=== PATIENT | female | born 1955 | race Caucasian/White ===

== ENCOUNTER 2020-07-22 20:07 | Inpatient (IN) | payer MEDICARE, OTHER ==
[2020-07-22 23:19] VITALS: TEMP 98.3
[2020-07-22] MEDS ORDERED: HEPARIN SODIUM 1,000 UN/ML (10ML VL) IV PRN (23:39)
[2020-07-22 23:53] LABS: Glucose,Whole Blood 113 mg/dL (75-99)
[2020-07-23] MEDS: HEPARIN SOD,PORK IN 0.45% NACL 25,000 UNIT in 0.45% NACL 1 250ML.BAG IV SCH ×2 (00:16→12:24)
[2020-07-23 01:17] LABS: Partial Thromboplastin Time 22.1 sec (22.0-30.0); Prothrombin Time 10.8 sec (9.0-12.0)
[2020-07-23 01:54] VITALS: RESP 18
[2020-07-23 06:22] LABS: Glucose,Whole Blood 117 mg/dL (75-99)
[2020-07-23] MEDS: INSULIN ASPART (NovoLOG) 100 UNIT/ML VIAL SQ SCH ×2 (07:18→13:45)
--- NOTE | 2020-07-23 08:30 | NM ---
EXAMINATION TYPE: NM pul vent and perfuse DATE OF EXAM: 07/23/2020 COMPARISON: Outside chest x-ray from yesterday HISTORY: Morbidly obese with shortness of breath TECHNIQUE: Utilizing inhalation of 66.5 mCi Tc 99m DTPA aerosol and intravenous injection of 5.4 mCi of Tc 99m MAA, ventilation and perfusion images are acquired post injection in multiple projections. FINDINGS: Slight central clumping of ventilation images suggests underlying COPD. Large radiolucent area corres ponds to known cardiomegaly. Small matching defects in the upper to mid right lung. There is no evide nce of mismatched defects. IMPRESSION: Low suspicion for acute pulmonary embolism.
[2020-07-23 08:31] VITALS: BP 202/88; PULSE 68
[2020-07-23 12:09] LABS: HCT 29.8 % (34.0-46.0); Hypochromasia Marked; MCH 29.5 pg (25.0-35.0); MCHC 30.2 g/dL (31.0-37.0); MCV 97.7 fL (80.0-100.0); Platelet Count 343 k/uL (150-450); RBC 3.04 m/uL (3.80-5.40); RDW 13.9 % (11.5-15.5)
[2020-07-23] MEDS ORDERED: hydrALAZINE HCL 20 MG/ML 1 ML VIAL IVP PRN (12:14)
[2020-07-23 12:20] LABS: ALT 10 U/L (4-34); AST 18 U/L (14-36); African American GFR (CKD) 28 (>60 ml/min/1.73 sqM); Albumin 2.9 g/dL (3.5-5.0); Alkaline Phosphatase 91 U/L (38-126); Anion Gap 5 mmol/L; Blood Urea Nitrogen 36 mg/dL (7-17); Carbon Dioxide 27 mmol/L (22-30); Chloride 111 mmol/L (98-107); Glucose 117 mg/dL (74-99); Non-African American GFR(CKD) 25 (>60 ml/min/1.73 sqM); Potassium 4.3 mmol/L (3.5-5.1); Sodium 143 mmol/L (137-145); Total Bilirubin <0.1 mg/dL (0.2-1.3); Total Protein 5.7 g/dL (6.3-8.2)
[2020-07-23] MEDS ORDERED: FUROSEMIDE 80 MG TAB PO STA (12:20)
[2020-07-23] MEDS ORDERED: FUROSEMIDE 10 MG/ML 10 ML VIAL IV SCH (12:30)
[2020-07-23] MEDS ORDERED: lisinopriL 20 MG TAB PO SCH (12:30)
--- NOTE | 2020-07-23 12:56 | P.HPIM ---
History of Present Illness Patient patient is a 64-year-old female was transferred from a [facility] after he she presented there with shortness of breath. Patient is presently not on oxygen patient is alert and oriented 2 patient is declining any care, patient wanted to see her own doctors. Patient had workup there at the hospital patient appears to have chronic kidney disease stage IV baseline creatinine is not available present creatinine is 2.07 patient is hypotensive with blood pressure going up to about 200s patient had some pulmonary edema on the chest x-ray although her ejection fraction is not known heart failure status is not known at this time. Patient does have some pedal edema would benefit from IV Lasix. Although she pulled her IV out and doesn't want any other IV. Patient declined to answer my questions patient didn't let me examine her either. Patient the had a VQ scan which showed low probability for pulmonary e mbolism. Patient is a [facility] resident. Review of Systems Unable to assess due to above-mentioned reasons patient is declining to answer any questions Past Medical History Past Medical History: Coronary Artery Disease (CAD), Diabetes Mellitus, Hyperlipidemia, Hypertension, Sleep Apnea/CPAP/BIPAP Additional Past Medical History / Comment(s): IBS History of Any Multi-Drug Resistant Organisms: None Reported Past Surgical History: Coronary Bypass/CABG Additional Past Surgical History / Comment(s): 3 vessel repair, "spot removed from lungs" Past Anesthesia/Blood Transfusion Reactions: No Reported Reaction Past Psychological History: Depression Smoking Status: Former smoker Past Drug Use History: None Reported - Past Family History Father Family Medical History: Diabetes Mellitus Medications and Allergies Home Medications Medication Instructions Recorded Confirmed Type ALPRAZolam [Xanax] 0.25 mg PO TID PRN 07/23/20 07/23/20 History Ascorbic Acid [Vitamin C] 500 mg PO DAILY 07/23/20 07/23/20 History Aspirin 81 mg PO DAILY 07/23/20 07/23/20 History Atorvastatin Calcium [Lipitor] 40 mg PO DAILY 07/23/20 07/23/20 History Calcium Carb-Vit D 500Mg-5Mcg 1 each PO BID 07/23/20 07/23/20 History [Oscal 500+D 5 Mcg (200 Iu)] Cyclobenzaprine [Flexeril] 10 mg PO TID PRN 07/23/20 07/23/20 History Desvenlafaxine Succinate 25 mg PO DAILY 07/23/20 07/23/20 History [Desvenlafaxine Succinate ER] Desvenlafaxine Succinate [Pristiq 25 mg PO DAILY 07/23/20 07/23/20 History ER] Ferrous Sulfate [Feosol] 325 mg PO DAILY 07/23/20 07/23/20 History Fluconazole [Diflucan] 100 mg PO DAILY 07/23/20 07/23/20 History Furosemide [Lasix] 40 mg PO DAILY 07/23/20 07/23/20 History Gabapentin [Neurontin] 300 mg PO BID 07/23/20 07/23/20 History HYDROcodone/APAP 5-325MG [[place] 1 tab PO Q6HR PRN 07/23/20 07/23/20 History 5-325] Insulin Glargine,Hum.rec.anlog 30 unit SQ BID 07/23/20 07/23/20 History [Lantus Solostar] Insulin NPL/Insulin Lispro 20 unit SQ AC-TID 07/23/20 07/23/20 History [humaLOG MIX 75-25 VIAL] Ipratropium-Albuterol Nebulize 1 neb INHALATION Q6HR 07/23/20 07/23/20 History [Duoneb 0.5 mg-3 mg/3 ml Soln] Isosorbide Mononitrate ER [Imdur] 30 mg PO DAILY 07/23/20 07/23/20 History Linagliptin [Tradjenta] 5 mg PO DAILY 07/23/20 07/23/20 History Meclizine [Antivert] 12.5 mg PO Q8HR PRN 07/23/20 07/23/20 History Metoprolol Tartrate [Lopressor] 100 mg PO BID 07/23/20 07/23/20 History Nitrofurantoin Monohyd/M-Cryst 100 mg PO Q12HR 07/23/20 07/23/20 History [Macrobid] Pentoxifylline 400 mg PO BID 07/23/20 07/23/20 History Pentoxifylline 400 mg PO BID 07/23/20 07/23/20 History hydrALAZINE HCL 50 mg PO TID 07/23/20 07/23/20 History hydrALAZINE HCL [Apresoline] 100 mg PO BID 05/22/21 05/22/21 History metFORMIN HCL [metFORMIN HCL ER] 750 mg PO DAILY 07/23/20 07/23/20 History Allergies Allergy/AdvReac Type Severity Reaction Status Date / Time No Known Allergies Allergy Verified 07/22/20 23:28 Physical Exam Vitals: Vital Signs Temp Pulse Resp BP Pulse Ox 07/23/20 08:00 98.3 F 68 18 202/88 95 07/23/20 04:00 74 18 184/76 94 L 07/23/20 00:00 77 18 153/76 95 07/22/20 22:58 98.3 F 70 22 174/75 95 Intake and Output 07/22/20 07/23/20 07/23/20 22:59 06:59 14:59 Intake Total 350 148.669 Output Total 550 200 Balance 350 -401.331 -200 Intake: Intake, IV Titration 148.669 Amount Heparin Sod,Pork in 0.45% 148.669 NaCl 25,000 unit In 0.45 % NaCl 1 250ml.bag @ 11 UNITS/KG/HR 22.99 mls/hr IV .[id number] [facility] Rx#: [id number] Oral 350 Output: Urine 550 200 Other: Voiding Method External Catheter Weight 209 kg 172 kg PHYSICAL EXAMINATION: Exam is limited as patient is declining any physical exam GENERAL: The patient is alert and oriented x2, not in any acute distress. Well developed, well nourished. HEENT: Unable to assess CARDIOVASCULAR: Unable to assess PULMONARY: Unable to assess ABDOMEN: Unable to assess MUSCULOSKELETAL: No joint swelling or deformity. EXTREMITIES: Significant bilateral pedal edema NEUROLOGICAL: As mentioned above Results CBC & Chem 7: 07/23/20 05:40 07/23/20 05:40 Labs: Abnormal Lab Results - Last 24 Hours (Table) 07/22/20 07/23/20 07/23/20 Range/Units 23:50 05:40 05:40 RBC 3.04 L (3.80-5.40) m/uL Hgb 9.0 L (11.4-16.0) gm/dL Hct 29.8 L (34.0-46.0) % MCHC 30.2 L (31.0-37.0) g/dL Chloride 111 H (98-107) mmol/L BUN 36 H (7-17) mg/dL Creatinine 2.07 H (0.52-1.04) mg/dL Glucose 117 H (74-99) mg/dL POC Glucose (mg/dL) 113 H (75-99) mg/dL Calcium 8.0 L (8.4-10.2) mg/dL Total Bilirubin <0.1 L (0.2-1.3) mg/dL Total Protein 5.7 L (6.3-8.2) g/dL Albumin 2.9 L (3.5-5.0) g/dL 07/23/20 Range/Units 06:19 RBC (3.80-5.40) m/uL Hgb (11.4-16.0) gm/dL Hct (34.0-46.0) % MCHC (31.0-37.0) g/dL Chloride (98-107) mmol/L BUN (7-17) mg/dL Creatinine (0.52-1.04) mg/dL Glucose (74-99) mg/dL POC Glucose (mg/dL) 117 H (75-99) mg/dL Calcium (8.4-10.2) mg/dL Total Bilirubin (0.2-1.3) mg/dL Total Protein (6.3-8.2) g/dL Albumin (3.5-5.0) g/dL Thrombosis Risk Factor Assmnt - Choose All That Apply Each Factor Represents 1 point: Obesity (BMI >25) Other Risk Factors: No Each Risk Factor Represents 2 Points: Age 61-74 years Other congenital or acquired thrombophilia - If yes, enter type in comment: No Thrombosis Risk Factor Assessment Total Risk Factor Score: 3 Thrombosis Risk Factor Assessment Level: Moderate Risk Assessment and Plan Plan: Shortness of breath: Probably secondary to pulmonary edema unsure pressures patient has heart failure patient would benefit from a IV Lasix although she pulled her IV and doesn't want any more IV lines put in. Patient usually uses 40 of for oral Lasix twice a day patient will be given a one-time dose of 80 Lasix patient is presently on room air saturating at 95% not requiring any oxygen rule out pulmonary embolism with the a VQ scan. As patient doesn't want to see any physicians here unfortunately nothing much else I can offer the patient patient wanted to see her own doctors patient will be transferred back [facility]. Possibility of heart failure exacerbation: Her ejection fraction is not known BNP is elevated to 8508 will be given 1 time oral dose of Lasix and will be resumed on her home dose of Lasix and will be discharged today as mentioned above -Chronic kidney disease stage IV next and-coronary artery disease -Type 2 diabetes mellitus -Hyperlipidemia -Hypertension -Sleep apnea -Generalized deconditioning patient is a [facility] resident -Obesity Unfortunately nothing much else can be offered here patient will be discharged back to [facility] patient will be given one-time dose of oral Lasix higher dose. Patient probably will be switched to torsemide instead of the Lasix which is a long-acting medication.
--- NOTE | 2020-07-23 13:25 | P.DS ---
Providers Date of admission: 07/22/20 22:47 Attending physician: Luisa Banuelos Primary care physician: Stated None Hospital Course: Refer to my HPI for further details Plan - Discharge Summary Discharge Rx Participant: No New Discharge Prescriptions: New Torsemide [Demadex] 30 mg PO DAILY #30 tablet Continue Metoprolol Tartrate [Lopressor] 100 mg PO BID@0900,1700 Atorvastatin Calcium [Lipitor] 40 mg PO HS Insulin NPL/Insulin Lispro [humaLOG MIX 75-25 VIAL] 25 unit SQ AC-TID Desvenlafaxine Succinate [Desvenlafaxine Succinate ER] 25 mg PO DAILY Meclizine [Antivert] 12.5 mg PO Q8HR PRN PRN Reason: Vertigo Ascorbic Acid [Vitamin C] 500 mg PO DAILY@1700 Calcium Carb-Vit D 500Mg-5Mcg [Oscal 500+D 5 Mcg (200 Iu)] 1 tab PO BID@0900,1700 Fiber Powder 1 tbsp PO DAILY@1700 Aspirin EC [Ecotrin Low Dose] 81 mg PO DAILY Epoetin Thiago [Epogen] 10,000 unit SQ MOWEFR@0900 Insulin Glargine,Hum.rec.anlog [Semglee Pen] 30 units SQ HS@2100 HYDROcodone/APAP 7.5-325MG [[place] 7.5-325] 1 tab PO Q12H PRN PRN Reason: Pain Magnesium Hydroxide [Milk of Magnesia Concentrate] 7,200 mg PO DAILY PRN PRN Reason: Constipation bisacodyL [Bisacodyl] 10 mg RECTAL DAILY PRN PRN Reason: Constipation Metoclopramide [Reglan] 10 mg PO AC-TID HYDROcodone/APAP 7.5-325MG [[place] 7.5-325] 1 tab PO BID@0900,2100 #10 tab Pentoxifylline 400 mg PO BID@0900,2100 Isosorbide Mononitrate ER [Imdur] 30 mg PO BID@0900,1700 Ferrous Sulfate [Feosol] 325 mg PO DAILY@1700 Fexofenadine HCl [[place]ana Allergy] 180 mg PO DAILY Insulin Glargine,Hum.rec.anlog [Semglee Pen] 35 units SQ DAILY@0900 Bisacodyl 5 mg PO DAILY PRN PRN Reason: Constipation Sennosides/Docusate Sodium [Senna-S 8.6-50 mg Tablet] 2 tab PO BID@0900,2100 Changed Gabapentin [Neurontin] 100 mg PO BID@899,2100 #10 cap hydrALAZINE HCL 100 mg PO TID #0 Discontinued Furosemide [Lasix] 40 mg PO DAILY Discharge Medication List Ascorbic Acid [Vitamin C] 500 mg PO DAILY@1700 07/23/20 [History] Aspirin EC [Ecotrin Low Dose] 81 mg PO DAILY 07/23/20 [History] Atorvastatin Calcium [Lipitor] 40 mg PO HS 07/23/20 [History] Bisacodyl 5 mg PO DAILY PRN 07/23/20 [History] Calcium Carb-Vit D 500Mg-5Mcg [Oscal 500+D 5 Mcg (200 Iu)] 1 tab PO BID@0900,1700 07/23/20 [History] Desvenlafaxine Succinate [Desvenlafaxine Succinate ER] 25 mg PO DAILY 07/23/20 [History] Epoetin Thiago [Epogen] 10,000 unit SQ MOWEFR@89907/23/20 [History] Ferrous Sulfate [Feosol] 325 mg PO DAILY@169907/23/20 [History] Fexofenadine HCl [Romana Allergy] 180 mg PO DAILY 07/23/20 [History] Fiber Powder 1 tbsp PO DAILY@169907/23/20 [History] Gabapentin [Neurontin] 100 mg PO BID@0900,2100 #10 cap 07/23/20 [Rx] HYDROcodone/APAP 7.5-325MG [[place] 7.5-325] 1 tab PO BID@0900,2100 #10 tab 07/23/20 [Rx] HYDROcodone/APAP 7.5-325MG [[place] 7.5-325] 1 tab PO Q12H PRN 07/23/20 [History] Insulin Glargine,Hum.rec.anlog [Semglee Pen] 30 units SQ HS@209907/23/20 [History] Insulin Glargine,Hum.rec.anlog [Semglee Pen] 35 units SQ DAILY@0900 07/23/20 [History] Insulin NPL/Insulin Lispro [humaLOG MIX 75-25 VIAL] 25 unit SQ AC-TID 07/23/20 [History] Isosorbide Mononitrate ER [Imdur] 30 mg PO BID@0900,1700 07/23/20 [History] Magnesium Hydroxide [Milk of Magnesia Concentrate] 7,200 mg PO DAILY PRN 1 [History] Meclizine [Antivert] 12.5 mg PO Q8HR PRN 07/23/20 [History] Metoclopramide [Reglan] 10 mg PO AC-TID 07/23/20 [History] Metoprolol Tartrate [Lopressor] 100 mg PO BID@0900,1700 07/23/20 [History] Pentoxifylline 400 mg PO BID@0900,209907/23/20 [History] Sennosides/Docusate Sodium [Senna-S 8.6-50 mg Tablet] 2 tab PO BID@0900,209907/23/20 [History] Torsemide [Demadex] 30 mg PO DAILY #30 tablet 07/23/20 [Rx] bisacodyL [Bisacodyl] 10 mg RECTAL DAILY PRN 07/23/20 [History] hydrALAZINE HCL 100 mg PO TID #0 07/23/20 [Rx] Patient Instructions/Handouts: Heart Failure (DC)
[2020-07-23] MEDS ORDERED: IPRATROPIUM-ALBUTEROL 3 ML NEB INHALATION SCH (14:00)
[2020-07-23] MEDS ORDERED: INSULIN DETEMIR (LEVEMIR) 100 UNIT/ML SYR SQ SCH (21:00)
[2020-07-23] MEDS ORDERED: METOPROLOL TARTRATE 50 MG TAB PO SCH (21:00)
[2020-07-24] MEDS ORDERED: ATORVASTATIN 40 MG TAB PO SCH (09:00)
[2020-07-24] MEDS ORDERED: DESVENLAFAXINE SUCCINATE 25 MG PO SCH (09:00)
[2020-07-24] MEDS ORDERED: FLUCONAZOLE 100 MG TAB PO SCH (09:00)
--- NOTE | 2020-08-12 08:50 | CDI ---
Documentation Clarification Form Date: 08/12/2020 08:44:28 AM From: Riki Gu Admit Date: 07/22/2020 10:47:00 PM Patient Name: Kimmy Hernandez Visit Number: [id number] Discharge Date: 07/23/2020 02:45:00 PM ATTENTION: The Clinical Documentation Specialists (CDI) and [facility] Coding Staff appreciate your assistance in clarifying documentation. Please respond to the clarification below the line at the bottom and electronically sign. The CDI & [facility] Coding staff will review the response and follow-up if needed. Please note: Queries are made part of the Legal Health Record. If you have any questions, please contact the author of this message via ITS. Dr. Luisa Banuelos Your patient has the documented diagnosis of unspecified CHF per the H+P. Additional information regarding the [type, acuity] of CHF is requested. History/Risk Factors: CAD, CABG Clinical Indicators : pedal edema, SOB BNP: 8508 Echocardiogram Results: EF not known. No ECHO done Treatment: IV lasix In your professional opinion, can you please clarify the [acuity and type] of CHF if known? [ ] Acute Systolic Heart Failure (reduced EF) [ ] Chronic Systolic Heart Failure (reduced EF) [ ] Acute on Chronic Systolic Heart Failure (reduced EF) [ ] Acute Diastolic Heart Failure (preserved EF) [ ] Chronic Diastolic Heart Failure (preserved EF) [ ] Acute on Chronic Diastolic Heart Failure (preserved EF) [ ] Acute Systolic & Diastolic Heart Failure [ ] Chronic Systolic & Diastolic Heart Failure [ ] Acute on Chronic Heart Failure Systolic & Diastolic Heart Failure [ ] Other, please specify [ ] Unable to determine Unable to determine MTDD
== END 2020-07-23 14:45 | DRG 292 ==
LOC: 3SCARD 22:47
PROVIDERS: ADMIT Hospitalist; ATTEND Hospitalist
DX: I13.0 Hypertensive heart and chronic kidney disease with heart failure and stage 1 through stage 4 chronic kidney disease, or unspecified chronic kidney disease (principal); N18.4 Chronic kidney disease, stage 4 (severe); Z68.44 Body mass index [BMI] 60.0-69.9, adult; E11.22 Type 2 diabetes mellitus with diabetic chronic kidney disease; I25.10 Atherosclerotic heart disease of native coronary artery without angina pectoris; E78.5 Hyperlipidemia, unspecified; Z95.1 Presence of aortocoronary bypass graft; Z87.891 Personal history of nicotine dependence; Z83.3 Family history of diabetes mellitus; Z79.82 Long term (current) use of aspirin; Z79.4 Long term (current) use of insulin; I50.9 Heart failure, unspecified; G47.30 Sleep apnea, unspecified; E66.9 Obesity, unspecified; K58.9 Irritable bowel syndrome, unspecified
CPT/HCPCS: 78582; 80053; 83880; 85027; 85610; 85730

== ENCOUNTER 2020-07-27 12:22 | Inpatient (IN) | payer MEDICARE, OTHER ==
[2020-07-31 12:19] VITALS: BMI 60.0
[2020-08-03 14:53] VITALS: BP 172/91; PULSE 75; RESP 18; TEMP 98.1
== END 2020-08-03 15:44 | DRG 760 ==
LOC: 3SCARD 17:00 → 4SSUR 07-28 18:48
PROVIDERS: ADMIT Internal Medicine; ATTEND Internal Medicine
PROC: 05HF33Z Insertion of Infusion Device into Left Cephalic Vein, Percutaneous Approach (ICD-10-PCS; principal; 2020-08-02)
DX: N95.0 Postmenopausal bleeding (principal); I50.33 Acute on chronic diastolic (congestive) heart failure; N18.4 Chronic kidney disease, stage 4 (severe); D62 Acute posthemorrhagic anemia; I13.0 Hypertensive heart and chronic kidney disease with heart failure and stage 1 through stage 4 chronic kidney disease, or unspecified chronic kidney disease; I25.10 Atherosclerotic heart disease of native coronary artery without angina pectoris; E11.22 Type 2 diabetes mellitus with diabetic chronic kidney disease; E78.5 Hyperlipidemia, unspecified; G47.30 Sleep apnea, unspecified; Z87.891 Personal history of nicotine dependence; Z74.01 Bed confinement status; Z95.1 Presence of aortocoronary bypass graft; E66.01 Morbid (severe) obesity due to excess calories; F32.9 Major depressive disorder, single episode, unspecified; Z79.4 Long term (current) use of insulin; Z79.82 Long term (current) use of aspirin; Z79.899 Other long term (current) drug therapy
CPT/HCPCS: 36410; 71045; 76856; 80048; 80053; 83880; 85025; 85027; 94760

== ENCOUNTER → 2021-01-13 | Outpatient (CLI) | payer MEDICARE, OTHER | END | disposition home or self-care (01) | LOC: RADPETMAIN 13:30 | PROVIDERS: ATTEND Obstetrics & Gynecology | DX: Z53.9 Procedure and treatment not carried out, unspecified reason (principal) ==